=== PATIENT | male | born 2000 | race Two or more races ===

== ENCOUNTER 2024-03-24 17:57 | Emergency (ER) | payer MEDICAID, SELFPAY ==
[2024-03-24 18:11] VITALS: BP 120/75; PULSE 85; RESP 16; TEMP 36.5; O2SAT 97; BMI 21.1
--- NOTE | 2024-03-24 18:18 | XR_ITS ---
Examination: Testicular sonography complete TECHNIQUE: Grayscale sonographic images testes, assessment arterial inflow venous outflow Doppler spectral analysis carful analysis Exam date and time: March 24, 2024 1844 hours INDICATIONS: Onset right testicular pain and swelling beginning 2 days ago, no injury FINDINGS: Right testis 5.0 x 2.8 x 2.8 cm Epididymis 17 mm Arterial flow to the testicle. Right scrotal ill-defined vascular soft tissue mass 3.4 x 2.4 x 2.5 cm, consider abscess Left testis 5.1 x 2.5 x 2.7 cm Epididymis 16mm Arterial flow testicle. Mild varicoceles No testicular mass IMPRESSION: No testicular torsion or testicular mass Findings most consistent with right groin lateral scrotal abscess 3.4 x 2.3 x 2.5 cm
--- NOTE | 2024-03-24 18:19 | EDRME_ITS ---
Rapid Medical Screening Exam [facility] Arrival date/time: 03/24/24 17:57 24-year-old male with no known medical history presents to the emergency room with a chief complaint of right-sided testicle swelling, tenderness x 2 days. I have greeted and performed a focused initial assessment of this patient. A comprehensive ED assessment and evaluation of the patient, analysis of all test results, and completion of the medical decision making process will be conducted by additional ED providers. Chief Complaint: Urogenital-Male Vital signs: Vital Signs Temperature 97.7 F 03/24/24 18:11 Pulse Rate 85 03/24/24 18:11 Respiratory Rate 16 03/24/24 18:11 Blood Pressure 120/75 03/24/24 18:11 Pulse Oximetry (%) 97 03/24/24 18:11 Oxygen Delivery Method Room Air 03/24/24 18:11 Vital signs reviewed by provider: Yes
[2024-03-24 18:53] LABS: Collection Type, Urine Clean Catch; Squamous Epithelial Cell,Urine 0 /hpf (0-5)
[2024-03-24 18:58] LABS: Basophils # (Auto) 0.1 Thou/mm3 (0.0-0.2); Basophils % (Auto) 0 % (0-2.5); Eosinophils # (Auto) 0.4 Thou/mm3 (0.0-0.5); Eosinophils % (Auto) 3 % (0-10); Hematocrit 39.5 % (41.0-53.0); Hemoglobin 13.8 g/dL (13.5-16.0); Immature Granulocytes % (Auto) 0 % (0-0); Immature Granulocytes Auto 0.04 Thou/mm3 (0.00-0.00); Lymphocytes # (Auto) 2.4 Thou/mm3 (1.0-4.8); Lymphocytes % (Auto) 18 % (10-50); Mean Corpuscular HGB Conc 34.9 g/dl (31.0-37.0); Mean Corpuscular Hemoglobin 32.2 pg (25.0-35.0); Mean Corpuscular Volume 92 fL (80-100); Monocytes # (Auto) 1.2 Thou/mm3 (0.0-0.8); Monocytes % (Auto) 9 % (0-12); Neutrophils % (Auto) 69 % (37-80); Nucleated Red Blood Cell % 0 /100 WBC (0); Platelet Count 388 Thou/mm3 (140-440); RDW Standard Deviation 45.7 fL (35.1-43.9); Red Blood Count 4.28 Miln/mm3 (4.50-5.90)
[2024-03-24 18:59] LABS: Bilirubin,Urine Negative (Negative); Blood,Urine Negative (Negative); Clarity,Urine Clear (Clear/Hazy); Color,Urine Lt-Yellow (Lt Yel-Yel); Culture Indicated,Urine Not Indicated; Glucose, Urine Negative (Negative); Ketones,Urine Negative (Negative); Leukocyte Esterase,Urine Negative (Negative); Nitrite,Urine Negative (Negative); Protein,Urine Trace (Neg - Trace); RBC,Urine 1 /hpf (0-3); Specific Gravity,Urine 1.015 (1.001-1.035); Urobilinogen,Urine Negative mg/dL (0.0-1.0); WBC,Urine 1 /hpf (0-5)
[2024-03-24 19:30] LABS: Alanine Aminotransferase 18 U/L (10-49); Albumin/Globulin Ratio 2.8 (1.2-2.2); Alkaline Phosphatase 110 U/L (46-116); Anion Gap 10 (7-16); Aspartate Amino Transferase 21 U/L (0-34); BUN/Creatinine Ratio 12 Ratio (12-20); Bilirubin,Total 0.2 mg/dL (0.3-1.2); Blood Urea Nitrogen 11 mg/dL (9-23); Calcium 9.8 mg/dL (8.3-10.6); Calcium (Corrected) 9.8 mg/dL (8.5-10.1); Carbon Dioxide 27.2 mMol/L (20.0-31.0); Chloride 104 mMol/L (98-107); Creatinine (Component) 0.9 mg/dL (0.6-1.3); Estimated Creatinine Clearance 108.2 mL/min (>60); Globulin 1.8 gm/dL (2.3-3.5); Glucose 96 mg/dL (74-106); Osmolality,Calculated 280 (275-295); Potassium 4.3 mMol/L (3.4-5.1); Sodium 141 mMol/L (136-145); Total Protein 6.8 gm/dL (5.7-8.2); eGFR > 60 See Note
--- NOTE | 2024-03-24 21:21 | EDNOTE_ITS ---
ED Male Genitalurinary RME/HPI General Chief complaint: Urogenital-Male Stated complaint: RIGHT TESTICLE PAIN X 2 DAYS Arrival date/time: 03/24/24 17:57 Limitations: no limitations RME / HPI RME / HPI Narrative: 03/24/24 17:57 24-year-old male with no known medical history presents to the emergency room with a chief complaint of right-sided testicle swelling, tenderness x 2 days. I have greeted and performed a focused initial assessment of this patient. A comprehensive ED assessment and evaluation of the patient, analysis of all test results, and completion of the medical decision making process will be conducted by additional ED providers. DR. RODRIGUEZ MAIN ED EVALUATION: 24 year old male with no past medical history presents to the Emergency Department with complaint of constant right testicular pain x 2 days. Patient states he's noticed swelling and pain to his right testicle that's been progressively worsening for the last 2 days, reporting the pain radiates to his groin. Patient denies any fever, chills, N/V/D, UTI symptoms or any other associated symptoms. Denies any recent sexual intercourse or history of STDs. Denies any history of similar symptoms. No known allergies. Patient was seen at [facility] and was placed on antibiotics. Related Data Previous Rx's ?Medication ?Instructions ?Recorded dicyclomine 20 mg tablet 20 mg PO BID PRN abdominal pain 08/03/21 #30 tabs pantoprazole 40 mg tablet,delayed 40 mg PO QDAY #30 tabs 08/03/21 release (Protonix) ibuprofen 600 mg tablet 600 mg PO Q6H #30 tabs 11/04/22 clindamycin HCl 300 mg capsule 300 mg PO Q6H #40 caps 03/25/24 Allergies Allergy/AdvReac Type Severity Reaction Status Date / Time No Known Allergies Allergy Verified 03/24/24 17:58 Review of Systems Review of Systems Systems Reviewed: All systems reviewed, normal except as documented Narrative Review of Systems: GEN: No fever, no chills, no weight loss EYES: No discharge, no visual changes, no pain HEENT: No ear pain, no congestion, no sore throat PULM: No shortness of breath, no cough, no congestion CV: No chest pain, no dyspnea on exertion, no palpitations GI: No nausea, no vomiting, no diarrhea, no pain, no constipation : No frequency, no urgency, no dysuria, + testicular pain and swelling MUSC/SKEL: No joint pain, no back pain SKIN: No rash PSYCH: No hallucinations, no depression HEME/LYMPH: No easy bleeding or bruising tendencies NEURO: No weakness, no headache Past Medical History Past Medical History CARDIAC: Negative Congestive Heart Failure RESPIRATORY: Negative Chronic Obstructive Pulmonary Disease (COPD) GENITOURINARY: Negative Renal Disease ENDOCRINE: Negative Diabetes Mellitus Type 1 or Diabetes Mellitus Type 2 Social History SMOKING STATUS: Never smoker SUBSTANCE USE: does not use ALCOHOL: Never ED Exam General Limitations: Present no limitations General appearance: Present alert and in no apparent distress Head Head exam: Present atraumatic, normocephalic and normal inspection Eye Eye exam: Present normal appearance, PERRL and EOMI ENT ENT exam: Present normal exam, normal oropharynx and mucous membranes moist Neck Neck exam: Present normal inspection, full ROM and trachea midline Chest Chest inspection: Present normal inspection and symmetric chest wall rise Respiratory Respiratory exam: Present normal lung sounds bilaterally Cardiovascular Cardiovascular exam: Present regular rate, normal rhythm and normal heart sounds Abdominal Exam Abdominal exam: Present soft, guarding and normal bowel sounds; Absent rebound or hernia exam: Present normal testicular lie and other (no overlying redness on the tenderness; 4x4cm tender nonfluctuant non-mobile mass lateral and superior to the right testicle without any overlying redness, tenderness does extend to the right groin); Absent testicular tenderness Extremities Exam Extremities exam: Present normal inspection and full ROM Back Exam Back exam: Present normal inspection and full ROM Neurological Exam Neurological exam: Present alert, oriented X3 and CN II-XII intact Psychiatric Psychiatric exam: Present normal affect and normal mood Skin Skin exam: Present warm, dry, intact and normal color Course Course Course Narrative: Patient states he had a CT scan done at [facility] 3 days ago. Will attempt to obtain the patient's medical records. Quality Measures none Orders Category Date Time Status CXRP [XR chest 1V portable] Stat Exams 03/24/24 23:11 Completed US testicular Stat Exams 03/24/24 18:18 Completed Blood Culture (Lab) Stat Lab 03/24/24 23:05 Received CBC Stat Lab 03/24/24 18:24 Completed CMP [Comprehensive Metabolic Panel] Stat Lab 03/24/24 18:24 Completed Chlamydia/GC/TV - PCR Stat Lab 03/24/24 18:44 Received Lactic Acid [Lactate (Lactic Acid)] Stat Lab 03/24/24 23:10 Completed Procalcitonin Stat Lab 03/24/24 23:10 Completed UA, C/S IF [Urinalysis, C/S if Indicated] Stat Lab 03/24/24 18:44 Completed Wound Culture and Gram Stain Stat Lab 03/25/24 02:55 Received Clindamycin/Ns 600 mg Ivpb [Cleocin/Ns Ivpb] Med 03/25/24 01:59 Discontinued 600 mg in 50 ml IV X1 HYDROcodone*/APAP 5/325 [[place] 5/325] Med 03/24/24 23:00 Discontinued 1 tab PO X1 ONE HYDROmorphone INJ [Dilaudid Inj] Med 03/25/24 01:30 Discontinued 1 mg IVP X1 ONE Ketorolac Inj [Toradol Inj] Med 03/24/24 23:01 Discontinued 30 mg IM X1 ONE Ketorolac Inj [Toradol Inj] Med 03/24/24 23:03 Discontinued 30 mg IVP X1 ONE Lidocaine 1% W/Epi 1:100K 20Ml [Xylocaine 1% w/Epi 1: Med 03/25/24 00:26 Discontinued 100K 20 ml] 20 ml INFL X1 ONE Morphine Inj Med 03/24/24 23:03 Discontinued 4 mg IVP X1 ONE Morphine Inj Med 03/25/24 00:39 Discontinued 4 mg IVP X1 ONE Ondansetron Inj [Zofran Inj] Med 03/24/24 23:04 Discontinued 4 mg IV X1 ONE Sodium Chloride 0.9% 1000 ml [Ns] 1,000 ml Med 03/24/24 23:05 Discontinued IV 999 mls/hr Vital Signs Vital signs: Vital Signs Temperature 97.7 F 03/24/24 18:11 Pulse Rate 85 03/24/24 18:11 Respiratory Rate 16 03/24/24 18:11 Blood Pressure 120/75 03/24/24 18:11 Pulse Oximetry (%) 97 03/24/24 18:11 Oxygen Delivery Method Room Air 03/24/24 18:11 Procedures -ED Abscess I/D Site: other (lateral and superior to the right testicle, at the groin) Sedation/analgesia: other (hydromorphone 1mg) Local Anesthetic: lidocaine 1% and with epi Amount of anesthesia used (mL): 10 Technique: incised with #11 blade Amount of fluid expressed (mL): 5 Irrigation: Yes Packing used?: plain Urogenital - Male Patient data External records reviewed:: [facility] previous records (Reviewed last ED visit dated 11/04/22, discharged with the following: Atypical chest pain.) Clinical information provided by:: patient Social determinants that could affect healthcare access:: none Patient has the following chronic illnesses:: Denies any PMHx, surgeries, daily medications, or known allergies. How is presenting disease/condition affected by chronic disease/condition?: no chronic disease Evaluation data The following diagnostics were reviewed and interpreted by me:: lab results and radiology exam(s) Lab and/or radiology exams considered but not ordered:: none Interpretation Summary: Procedure(s): US testicular Accession Number(s): [id number] cc: Kristofer Mitchell; Jesse Jhaveri MD; Angel Rolon MD~ Examination: Testicular sonography complete TECHNIQUE: Grayscale sonographic images testes, assessment arterial inflow venous outflow Doppler spectral analysis carful analysis Exam date and time: March 24, 2024 1844 hours INDICATIONS: Onset right testicular pain and swelling beginning 2 days ago, no injury FINDINGS: Right testis 5.0 x 2.8 x 2.8 cm Epididymis 17 mm Arterial flow to the testicle. Right scrotal ill-defined vascular soft tissue mass 3.4 x 2.4 x 2.5 cm, consider abscess Left testis 5.1 x 2.5 x 2.7 cm Epididymis 16mm Arterial flow testicle. Mild varicoceles No testicular mass IMPRESSION: No testicular torsion or testicular mass Findings most consistent with right groin lateral scrotal abscess 3.4 x 2.3 x 2.5 cm Dictated By: Angel Rolon MD [facility] Report Signed [facility] [id number] Birthdate: 2000 Age/Sex: 24 / M [facility]: Ordering Physician: Stephanie Rodriguez MD Date of Service: 03/24/24 Procedure(s): XR chest 1V portable Accession Number(s): [id number] cc: Jesse Jhaveri MD; Angel Rolon MD; Stephanie Rodriguez MD~ Examination: AP chest single view Technique one AP portable upright chest single view Exam date and time: March 24, 2024 11:20 PM Indications: Right groin pain beginning 2 days ago, history chest pain October 2022 Findings: Normal heart size. Lungs are clear. The osseous structures are intact Impression: No active disease Dictated By: Angel Rolon MD Signed By: <Electronically signed by Angel Rolon MD in OV> 03/24/24 1897 Medications / Prescriptions Medications or Prescriptions considered but not ordered:: none Medication administrations:: Medication Administration History Discontinued Medications Hydrocodone Bitart/Acetaminophen (Hydrocodone/Apap 5/325 Tablet) 1 tab PO X1 ONE Stop: 03/24/24 23:01 Last Admin: 03/24/24 23:17 Dose: Not Given Documented By: CB Non-Admin Reason: Cancelled by Provider Hydromorphone HCl (Hydromorphone Inj 2 Mg/Ml Vial) 1 mg IVP X1 ONE Stop: 03/25/24 01:31 Last Admin: 03/25/24 01:34 Dose: 1 mg Documented By: HILDA Sodium Chloride (Ns) 1,000 mls @ 999 mls/hr IV .Q1H1M ONE Stop: 03/25/24 00:05 Last Infusion: 03/25/24 00:34 Dose: Infused Documented By: Admin: 03/24/24 23:14 Dose: 999 mls/hr Documented By: MARYANN Clindamycin/Sodium Chloride (Cleocin/Ns Ivpb) 600 mg in 50 mls @ 100 mls/hr IV X1 ONE Stop: 03/25/24 02:28 Last Infusion: 03/25/24 02:41 Dose: Infused Documented By: Admin: 03/25/24 02:05 Dose: 100 mls/hr Documented By: HILDA Ketorolac Tromethamine (Ketorolac Inj 60 Mg/2 Ml Vial) 30 mg IM X1 ONE Stop: 03/24/24 23:02 Last Admin: 03/24/24 23:17 Dose: Not Given Documented By: CB Non-Admin Reason: Cancelled by Provider Ketorolac Tromethamine (Ketorolac Inj 30 Mg/Ml Vial) 30 mg IVP X1 ONE Stop: 03/24/24 23:04 Last Admin: 03/24/24 23:14 Dose: 30 mg Documented By: MARYANN Lidocaine/Epinephrine (Lidocaine 1% W/Epi 1:100k 20 Ml Vial) 20 ml INFL X1 ONE Stop: 03/25/24 00:27 Last Admin: 03/25/24 00:45 Dose: 20 ml Documented By: HILDA Morphine Sulfate (Morphine Sulf Inj 10 Mg/Ml Vial) 4 mg IVP X1 ONE Stop: 03/24/24 23:04 Last Admin: 03/24/24 23:17 Dose: 4 mg Documented By: CB Morphine Sulfate (Morphine Sulf Inj 10 Mg/Ml Vial) 4 mg IVP X1 ONE Stop: 03/25/24 00:40 Last Admin: 03/25/24 00:44 Dose: 4 mg Documented By: HILDA Ondansetron HCl (Ondansetron Inj 2 Mg/Ml Inj 2 Ml) 4 mg IV X1 ONE; Protocol Stop: 03/24/24 23:05 Last Admin: 03/24/24 23:19 Dose: 4 mg Documented By: MARYANN see above if any Consultations Consultation(s) initiated? (list below): Yes Consultation #1 (Physician, Specialty, Details): Spoke with [facility] transfer center and urologist Dr. Curran regarding possible transfer, who states that if this case is not surgical, to try to do a I&D here. Time: 23:54 Diagnosis Urogenital Male Differential Diagnosis: urinary tract infection and other (sepsis, abscess, mass, cancer, STD, hernia) Most likely diagnosis given after review of the tests above:: see below Admission Indicated Admission indicated?: not indicated Explain why admission is indicated or not indicated:: Patient is stable for outpatient follow-up. Admission Request Was there a request for admission?: No Disposition Plan Disposition Plan: Discharge Discharge Attestation Discharge Attestation: The patient and all family members were given an opportunity to ask questions and understood the discharge instructions. Discharge instructions specifically effects, indications for sooner follow up or return to the emergency department, and the expected course of current diagnosis. Patient condition: Stable Discharge Plan Plan Patient Disposition: HOME (Self Care) Patient condition on transfer: Stable Prescriptions/Referrals Prescriptions/Med Rec: New clindamycin HCl 300 mg capsule 300 mg PO Q6H Qty: 40 0RF No Action pantoprazole [Protonix] 40 mg tablet,delayed release (DR/EC) 40 mg PO QDAY Qty: 30 0RF dicyclomine 20 mg tablet 20 mg PO BID PRN (Reason: abdominal pain) Qty: 30 0RF ibuprofen 600 mg tablet 600 mg PO Q6H Qty: 30 0RF Referrals: Jesse Jhaveri MD [Primary Care Provider] - In 1 week Problem List Clinical Impression: Scrotal abscess Patient/Caregiver Discharge Instructions Education Materials: ED Abscess Incision And ... Additional Instructions: 1-Please return to see Dr. Rodriguez at 10pm tonight for reevaluation. Please take the antibiotics as prescribed clindamycin every 6 hours x 10 days. 2-Ensure you are taking with food. You can take [id number] Tylenol 650 mg or 600 mg of Motrin every 6-8 hours with food for pain. Use the warm compresses as we discussed. 3-Return to the emergency department sooner than tonight if you have fever, increasing pain, cannot tolerate liquids, or any other concerns. Print Language: Citizen [place] Stand Alone Forms: Fifi Award Info., Work/School Release, Patient Portal Info Letter
[2024-03-24 22:06] VITALS: BP 113/72; PULSE 65; RESP 16; TEMP 36.9; O2SAT 99
--- NOTE | 2024-03-24 23:11 | XR_ITS ---
Examination: AP chest single view Technique one AP portable upright chest single view Exam date and time: March 24, 2024 11:20 PM Indications: Right groin pain beginning 2 days ago, history chest pain October 2022 Findings: Normal heart size. Lungs are clear. The osseous structures are intact Impression: No active disease
[2024-03-24] MEDS: SODIUM CHLORIDE 0.9% 1000 ML 1,000 ML 999 ML IV (23:14)
[2024-03-24] MEDS: KETOROLAC INJ 30 MG/ML VIAL IVP (23:14)
[2024-03-24] MEDS: MORPHINE SULF INJ 10 MG/ML VIAL 4 MG IVP (23:17)
[2024-03-24] MEDS: ONDANSETRON INJ 2 MG/ML INJ 2 ML 4 MG IV (23:19)
[2024-03-24 23:30] LABS: Lactate (Lactic Acid) 1.1 mMol/L (0.4-2.0)
[2024-03-24 23:58] LABS: Procalcitonin 0.11 ng/ml (0.0-0.49)
[2024-03-25] MEDS: MORPHINE SULF INJ 10 MG/ML VIAL 4 MG IVP (00:44)
[2024-03-25] MEDS: LIDOCAINE 1% W/EPI 1:100K 20 ML VIAL INFL (00:45)
[2024-03-25] MEDS: HYDROmorphone INJ 2 MG/ML VIAL 1 MG IVP (01:34)
[2024-03-25] MEDS: CLINDAMYCIN/NS 600 MG IVPB 600 MG/50 ML BAG 100 MG IV (02:05)
[2024-03-25 02:39] VITALS: BP 140/80; PULSE 70; RESP 16; TEMP 36.7; O2SAT 99
[2024-03-25 08:38] LABS: Chlamydia trachomatis PCR Negative (Not Detect); Neisseria Gonorrhoeae DNA PCR Negative (Not Detect); Trichomonas Negative (Negative)
== END 2024-03-25 02:40 | disposition home or self-care (01) ==
PROVIDERS: Nurse Practitioner Family; Emergency Provider Emergency Medicine; PCP Family Medicine
DX: N49.2 Inflammatory disorders of scrotum (principal); R07.9 Chest pain, unspecified
CPT/HCPCS: 54700; 36415; 71045; 76870; 80053; 81001; 83605; 84145; 85025; 87040; 87070; 87205; 87491; 87591; 87661; 96361; 96365; 96375; 96376; 99284; J1885; J2270; J2405; J3490; J7030; S0077; J0737

== ENCOUNTER 2024-03-25 21:04 | Emergency (ER) | payer MEDICAID, SELFPAY ==
[2024-03-25 21:04] VITALS: BMI 20.3
--- NOTE | 2024-03-25 22:25 | EDNOTE_ITS ---
ED Wound/Laceration-RME/HPI General Chief Complaint: Wound Recheck / Suture Removal Stated Complaint: RECHECK OF TESTICULAR ABSCESS Time Seen by Provider: 03/25/24 22:24 Arrival date/time: 03/25/24 21:04 Limitations: no limitations RME / HPI RME / HPI narrative: Dr. Rodriguez's Main ED Evaluation: 24yo male presents to the ED to have his abscess rechecked. Patient was seen here last night and had an incision and drainage of his abscess and was advised to return here for a recheck. Patient states he's had significant improvement of pain since his abscess was drained. He is taking his antibiotics. He denies any fever, chills, excessive drainage or any other associated symptoms. No known allergies. Related Data Previous Rx's ?Medication ?Instructions ?Recorded dicyclomine 20 mg tablet 20 mg PO BID PRN abdominal pain 08/03/21 #30 tabs pantoprazole 40 mg tablet,delayed 40 mg PO QDAY #30 tabs 08/03/21 release (Protonix) ibuprofen 600 mg tablet 600 mg PO Q6H #30 tabs 11/04/22 clindamycin HCl 300 mg capsule 300 mg PO Q6H #40 caps 03/25/24 Allergies Allergy/AdvReac Type Severity Reaction Status Date / Time No Known Allergies Allergy Verified 03/25/24 21:06 Review of Systems Review of Systems Systems Reviewed: All systems reviewed, normal except as documented ED Exam General Limitations: Present no limitations General appearance: Present alert and in no apparent distress Head Head exam: Present atraumatic Eye Eye exam: Present normal appearance, PERRL and EOMI ENT ENT exam: Present normal exam, normal oropharynx and mucous membranes moist Neck Neck exam: Present normal inspection, full ROM and trachea midline Chest Chest inspection: Present normal inspection and symmetric chest wall rise Respiratory Respiratory exam: Present normal lung sounds bilaterally Cardiovascular Cardiovascular exam: Present regular rate, normal rhythm and normal heart sounds Abdominal Exam Abdominal exam: Present soft and normal bowel sounds exam: Present other (I&D site lateral and superior to the right testicle is improved, no overlying erythema or warmness to the touch) Extremities Exam Extremities exam: Present normal inspection and full ROM Back Exam Back exam: Present normal inspection and full ROM Neurological Exam Neurological exam: Present alert, oriented X3 and CN II-XII intact Psychiatric Psychiatric exam: Present normal affect and normal mood Skin Skin exam: Present warm, dry, intact and normal color Course Course Course Narrative: Patient had tegaderm and packing in place at the I&D site with wet yellow dr barcenas. Packing was removed and replaced. Patient endorses having improvement of symptoms and is stable to be discharged home. Quality Measures none Orders Category Date Time Status HYDROcodone*/APAP 5/325 [[place] 5/325] Med 03/25/24 22:24 Discontinued 1 tab PO X1 ONE Ketorolac Inj [Toradol Inj] Med 03/25/24 22:24 Discontinued 30 mg IM X1 ONE Wound / Laceration Patient data External records reviewed:: [facility] previous records (Per chart review, patient was seen here yesterday for a scrotal abscess.) Clinical information provided by:: patient Social determinants that could affect healthcare access:: none Patient has the following chronic illnesses:: none How is presenting disease/condition affected by chronic disease/condition?: no chronic disease Evaluation data The following diagnostics were reviewed and interpreted by me:: other (specify) (none) Lab and/or radiology exams considered but not ordered:: none Interpretation Summary: none Medications / Prescriptions Medications or Prescriptions considered but not ordered:: none Medication administrations:: Medication Administration History Discontinued Medications Hydrocodone Bitart/Acetaminophen (Hydrocodone/Apap 5/325 Tablet) 1 tab PO X1 ONE Stop: 03/25/24 22:25 Last Admin: 03/25/24 22:34 Dose: 1 tab Documented By: ERYN Ketorolac Tromethamine (Ketorolac Inj 60 Mg/2 Ml Vial) 30 mg IM X1 ONE Stop: 03/25/24 22:25 Last Admin: 03/25/24 22:34 Dose: 30 mg Documented By: ERYN see above Consultations Consultation(s) initiated? (list below): No Diagnosis Wound Differential Diagnosis: other (return of abscess, cellulitis, pain control) Most likely diagnosis given after review of the tests above:: see below Admission Indicated Admission indicated?: not indicated Admission Request Was there a request for admission?: No Disposition Plan Disposition Plan: Discharge Discharge Attestation Discharge Attestation: The patient and all family members were given an opportunity to ask questions and understood the discharge instructions. Discharge instructions specifically effects, indications for sooner follow up or return to the emergency department, and the expected course of current diagnosis. Patient condition: Stable Discharge Plan Plan Patient Disposition: HOME (Self Care) Patient condition on transfer: Stable Prescriptions/Referrals Prescriptions/Med Rec: No Action pantoprazole [Protonix] 40 mg tablet,delayed release (DR/EC) 40 mg PO QDAY Qty: 30 0RF dicyclomine 20 mg tablet 20 mg PO BID PRN (Reason: abdominal pain) Qty: 30 0RF ibuprofen 600 mg tablet 600 mg PO Q6H Qty: 30 0RF clindamycin HCl 300 mg capsule 300 mg PO Q6H Qty: 40 0RF Problem List Clinical Impression: Visit for wound check Patient/Caregiver Discharge Instructions Education Materials: ED Abscess Antibiotic ... Additional Instructions: Continue the warm compresses for the next 2 days as we discussed. Finish your antibiotics. You can return in 48 hours to have the packing removed but I do not think you will need repacking. Return sooner if you are having fever, worse pain, any redness around your scrotal area, or any other concerns Print Language: [place] Stand Alone Forms: Fifi Award Info., Patient Portal Info Letter
[2024-03-25] MEDS: KETOROLAC INJ 60 MG/2 ML VIAL 30 MG IM (22:34)
[2024-03-25] MEDS: HYDROcodone/APAP 5/325 TABLET 1 TAB PO (22:34)
== END 2024-03-26 00:40 | disposition home or self-care (01) ==
LOC: SERX 22:38
PROVIDERS: Emergency Provider Emergency Medicine; PCP Family Medicine
DX: Z48.00 Encounter for change or removal of nonsurgical wound dressing (principal); N45.4 Abscess of epididymis or testis
CPT/HCPCS: 96372; 99283; J1885; A9270

== ENCOUNTER 2024-06-11 17:03 | Emergency (ER) | payer MEDICAID, SELFPAY ==
[2024-06-11 17:03] VITALS: BMI 19.5
[2024-06-11 17:18] VITALS: BP 129/84; PULSE 79; RESP 16; TEMP 36.7; O2SAT 99
--- NOTE | 2024-06-11 17:47 | PD.EDMALE ---
ED Male Genitalurinary RME/HPI General Chief complaint: Urogenital-Male Stated complaint: perineal abscess Time Seen by Provider: 06/11/24 17:10 Source: patient Arrival date/time: 06/11/24 17:03 24-year-old male with no known medical history presents to the emergency room with a chief complaint of an abscess under his right testicle. Patient states he has a history of this abscess and had an incision and drainage on it before. Mode of arrival: ambulatory Limitations: no limitations Related Data Previous Rx's ?Medication ?Instructions ?Recorded dicyclomine 20 mg tablet 20 mg PO BID PRN abdominal pain 08/03/21 #30 tabs pantoprazole 40 mg tablet,delayed 40 mg PO QDAY #30 tabs 08/03/21 release (Protonix) ibuprofen 600 mg tablet 600 mg PO Q6H #30 tabs 11/04/22 clindamycin HCl 300 mg capsule 300 mg PO Q6H #40 caps 03/25/24 sulfamethoxazole 800 1 tab PO BID #14 tabs 06/11/24 mg-trimethoprim 160 mg tablet (Bactrim DS) Allergies Allergy/AdvReac Type Severity Reaction Status Date / Time No Known Allergies Allergy Verified 03/25/24 21:06 Review of Systems Review of Systems Systems Reviewed: All systems reviewed, normal except as documented Constitutional Constitutional: Reports system reviewed and no additional complaints, except as documented, Denies fatigue, Denies fever(s), Denies headache(s) and Denies weakness Eyes Eyes: Reports system reviewed and no additional complaints, except as documented, Denies blurry vision and Denies change in vision ENT Ears, Nose, Mouth, and Throat: Reports system reviewed and no additional complaints, except as documented, Denies otalgia, Denies headache(s), Denies nasal congestion, Denies throat swelling and Denies vertigo Cardiovascular Cardiovascular: Reports system reviewed and no additional complaints, except as documented, Denies chest pain, Denies dyspnea and Denies dyspnea on exertion Respiratory Respiratory: Reports system reviewed and no additional complaints, except as documented, Denies chest congestion, Denies cough, Denies dyspnea, Denies dyspnea on exertion and Denies wheezing Gastrointestinal Gastrointestinal: Reports system reviewed and no additional complaints, except as documented, Denies abdominal pain, Denies cramping, Denies nausea and Denies vomiting Genitourinary Genitourinary: Reports system reviewed and no additional complaints, except as documented, Denies dysuria and Denies hematuria Musculoskeletal Musculoskeletal: Reports system reviewed and no additional complaints, except as documented and Denies back pain Integumentary/Breasts Skin/Breast: Reports system reviewed and no additional complaints, except as documented and Denies wounds Neurologic Neurologic: Reports system reviewed and no additional complaints, except as documented, Denies confusion, Denies headache(s), Denies lack of coordination, Denies vertigo and Denies weakness Psychiatric Psychiatric: Reports system reviewed and no additional complaints, except as documented, Denies anxiety, Denies confusion, Denies depression, Denies paranoia, Denies suicidal ideation and Denies tactile hallucinations Endocrine Endocrine: Reports system reviewed and no additional complaints, except as documented and Denies fatigue Hematologic/Lymphatic Hematologic/Lymphatic: Reports system reviewed and no additional complaints, except as documented and Denies lymphadenopathy Allergic/Immunologic Allergic/Immunologic: Reports system reviewed and no additional complaints, except as documented, Denies throat swelling, Denies urticaria and Denies wheezing Past Medical History Past Medical History CARDIAC: Negative Congestive Heart Failure RESPIRATORY: Negative Chronic Obstructive Pulmonary Disease (COPD) GENITOURINARY: Negative Renal Disease ENDOCRINE: Negative Diabetes Mellitus Type 1 or Diabetes Mellitus Type 2 Social History SMOKING STATUS: Never smoker SUBSTANCE USE: does not use ED Exam General Limitations: Present no limitations General appearance: Present alert and in no apparent distress Head Head exam: Present atraumatic Eye Eye exam: Present normal appearance, PERRL and EOMI ENT ENT exam: Present normal exam, normal oropharynx and mucous membranes moist Neck Neck exam: Present normal inspection, full ROM and trachea midline Chest Chest inspection: Present normal inspection and symmetric chest wall rise Respiratory Respiratory exam: Present normal lung sounds bilaterally Cardiovascular Cardiovascular exam: Present regular rate, normal rhythm and normal heart sounds Abdominal Exam Abdominal exam: Present soft and normal bowel sounds Expanded Exam image:  1. Abscess to the right groin area under the right testicle. It is erythemic and very rough at this time it is not ready for an incision and drainage. Extremities Exam Extremities exam: Present normal inspection and full ROM Back Exam Back exam: Present normal inspection and full ROM Neurological Exam Neurological exam: Present alert, oriented X3 and CN II-XII intact Psychiatric Psychiatric exam: Present normal affect and normal mood Skin Skin exam: Present warm, dry, intact and normal color Course Quality Measures none Vital Signs Vital signs: Vital Signs Temperature 98.0 F 06/11/24 17:18 Pulse Rate 79 06/11/24 17:18 Respiratory Rate 16 06/11/24 17:18 Blood Pressure 129/84 06/11/24 17:18 Pulse Oximetry (%) 99 06/11/24 17:18 Oxygen Delivery Method Room Air 06/11/24 17:18 O2 saturation 99% within normal limits Urogenital - Male MDM Narrative MDM Narrative:: 24-year-old male with no known medical history presents to the emergency room with a chief complaint of an abscess under his right testicle. Patient states he has a history of this abscess and had an incision and drainage on it before. Patient is hemodynamically stable and in no apparent distress Physical examination shows a 0.5 cm abscess in the right groin area under the right testicle. Patient states he has a history of this abscess and has had it drained before. The area is erythemic and very rough. There is no warmth to the touch. This abscess seems to be due to an ingrown hair or folliculitis. Antibiotics are sent to the patient's pharmacy patient was educated to follow-up with his primary care provider and return to the emergency room for any evidence of worsening signs or symptoms Patient data External records reviewed:: [facility] previous records Clinical information provided by:: patient Social determinants that could affect healthcare access:: none Patient has the following chronic illnesses:: No chronic illness How is presenting disease/condition affected by chronic disease/condition?: no chronic disease Evaluation data The following diagnostics were reviewed and interpreted by me:: lab results and radiology exam(s) Lab and/or radiology exams considered but not ordered:: Labs and radiology exams considered and ordered Interpretation Summary: N/A Medications / Prescriptions Medications or Prescriptions considered but not ordered:: Medication given Medication administrations:: Medication given Consultations Consultation(s) initiated? (list below): No Diagnosis Urogenital Male Differential Diagnosis: other (Subcutaneous abscess/cellulitis/folliculitis) Most likely diagnosis given after review of the tests above:: Folliculitis Admission Indicated Admission indicated?: not indicated Admission Request Was there a request for admission?: No Disposition Plan Disposition Plan: Discharge Discharge Attestation Discharge Attestation: The patient and all family members were given an opportunity to ask questions and understood the discharge instructions. Discharge instructions specifically effects, indications for sooner follow up or return to the emergency department, and the expected course of current diagnosis. Patient condition: Stable Discharge Plan Plan Patient Disposition: HOME (Self Care) Disposition Comment: Stable Prescriptions/Referrals Prescriptions/Med Rec: New sulfamethoxazole-trimethoprim [Bactrim DS] 800-160 mg tablet 1 tab PO BID Qty: 14 0RF No Action pantoprazole [Protonix] 40 mg tablet,delayed release (DR/EC) 40 mg PO QDAY Qty: 30 0RF dicyclomine 20 mg tablet 20 mg PO BID PRN (Reason: abdominal pain) Qty: 30 0RF ibuprofen 600 mg tablet 600 mg PO Q6H Qty: 30 0RF clindamycin HCl 300 mg capsule 300 mg PO Q6H Qty: 40 0RF Problem List Clinical Impression: Folliculitis Patient/Caregiver Discharge Instructions Education Materials: Understanding Folliculitis, ED Folliculitis Additional Instructions: Please follow-up with your primary care provider in the next 24 to 48 hours. At this time the abscess in your groin is not ready to be drained. Please take these antibiotics as this should help your symptoms. If your symptoms begin to get worse please return to the emergency room for an incision and drainage of your abscess For any evidence of worsening signs or symptoms return to the emergency room immediately Print Language: Czech Stand Alone Forms: [employer]i Award Info., Patient Portal Info Letter
[2024-06-11] MEDS: cefTRIAXone 1,000 MG, LIDOCAINE 1% 20 ML 2.1 ML IM (18:51)
== END 2024-06-11 19:02 | disposition home or self-care (01) ==
PROVIDERS: Emergency Provider Emergency Medicine; PCP Family Medicine
DX: L73.9 Follicular disorder, unspecified (principal); L02.215 Cutaneous abscess of perineum
CPT/HCPCS: 96372; 99283; J0696; J3490